=== PATIENT | female | born 1980 | race African-American/Black ===

== ENCOUNTER 2022-10-26 08:33 | Emergency (ER) | payer OTHER ==
[~2022-10-26] VITALS: Ht 167.6 cm; Wt 89.8 kg
[2022-10-26 09:02] LABS: EOSINOPHILS # (AUTO) 0.1 (0.0-0.4); EOSINOPHILS % 1.7 % (0.0-6.0); HEMATOCRIT 40.4 % (34.2-44.1); HEMOGLOBIN 13.1 g/dL (12.0-16.0); LYMPHOCYTES # (AUTO) 0.9 (1.0-3.2); LYMPHOCYTES % 21.6 % (18.0-39.1); MEAN CORPUSCULAR HEMOGLOBIN 29.8 pg (28-32); MEAN CORPUSCULAR HGB CONC 32.4 g/dL (31-35); MONOCYTES # (AUTO) 0.3 (0.2-0.8); MONOCYTES % 7.5 % (4.4-11.3); NEUTROPHILS # (AUTO) 2.8 (2.1-6.9); PLATELET COUNT 367 x10e3/uL (140-360); RED BLOOD COUNT 4.39 x10e6/uL (3.6-5.1); RED CELL DISTRIBUTION WIDTH 13.6 % (11.7-14.4)
[2022-10-26 09:23] LABS: ALANINE AMINOTRANSFERASE 6 IU/L (0-55); ALBUMIN 3.8 g/dL (3.5-5.0); ALKALINE PHOSPHATASE 64 IU/L (40-150); ANION GAP 15.5 mmol/L (8-16); BLOOD UREA NITROGEN 8 mg/dL (7-26); BUN/CREATININE RATIO 9 (6-25); CALCIUM 9.3 mg/dL (8.4-10.2); CARBON DIOXIDE 24 mmol/L (22-29); CHLORIDE 106 mmol/L (98-107); CREATINE KINASE 141 IU/L (29-168); CREATININE, SERUM 0.85 mg/dL (0.57-1.11); GLUCOSE 88 mg/dL (74-118); MAGNESIUM 2.1 MG/DL (1.3-2.1); POTASSIUM 3.5 mmol/L (3.5-5.1); SODIUM 142 mmol/L (136-145)
== END 2022-10-26 11:16 | disposition home or self-care (01) ==
LOC: ER 08:40
DX: R07.89 Other chest pain (principal); F41.9 Anxiety disorder, unspecified; F98.8 Other specified behavioral and emotional disorders with onset usually occurring in childhood and adolescence
CPT/HCPCS: 36415; 71045; 80053; 82550; 82553; 83735; 84484; 84702; 85025; 93005; 99284

== ENCOUNTER → 2025-01-02 | Day surgery (SDC) | payer OTHER ==
[~2025-01-02] MED LIST: FENTANYL CITRATE/PF 100MCG/2 ML INJ ONE; GLUCAGON FOR INJ 1 MG VIAL ONE; IRON PO; MIDAZOLAM HCL 2 MG/2 ML VIAL ONE; OCREVUS300 MG/10 IV; PROPOFOL IV EMULSION 10 MG/ML 20 ML VIAL ONE; VYVANSE60 MG PO
[2025-01-02] MEDS: LACTATED RINGER'S 1,000 ML BAG IV ONE (08:05)
[2025-01-02 12:30] VITALS: BP 122/78; PULSE 61; RESP 16; TEMP 97.4; O2SAT 100
[2025-01-08 14:12] LABS: ENDOMYSIAL ANTIBODIES, IGA Negative (Negative)
[2025-01-08 16:03] LABS: IMMUNOGLOBULIN A 494 mg/dL (87-352); TISSUE TRANSGLUTAMINASE IGA AB <2 U/mL (0-3)
== END | disposition home or self-care (01) ==
LOC: OR 07:42
PROVIDERS: ATTEND Internal Medicine Gastroenterology
DX: D64.9 Anemia, unspecified (principal); D12.2 Benign neoplasm of ascending colon; K29.80 Duodenitis without bleeding; K31.89 Other diseases of stomach and duodenum; K64.8 Other hemorrhoids; G35 Multiple sclerosis; F90.9 Attention-deficit hyperactivity disorder, unspecified type; Z79.899 Other long term (current) drug therapy
CPT/HCPCS: 43239; 45378; 81025; 82784; 83516; 86256; J1610; J2250; J2470; J2704; J3010; J7121; 43255

== ENCOUNTER → 2025-02-12 | Outpatient (REF) | payer OTHER ==
[~2025-02-12] MED LIST changes: -FENTANYL CITRATE/PF 100MCG/2 ML INJ ONE; -GLUCAGON FOR INJ 1 MG VIAL ONE; -MIDAZOLAM HCL 2 MG/2 ML VIAL ONE; -PROPOFOL IV EMULSION 10 MG/ML 20 ML VIAL ONE
== END ==
LOC: DX 07:43
PROVIDERS: ATTEND Nurse Practitioner
DX: D64.89 Other specified anemias (principal)
CPT/HCPCS: 74250